=== PATIENT | female | born 1950 | race Caucasian/White ===

== ENCOUNTER 2020-12-31 15:12 | Emergency (ER) | payer MEDICARE ==
[~2020-12-31] VITALS: Ht 154.9 cm; Wt 56.0 kg
--- NOTE | 2020-12-31 16:00 | PHYS DOC ---
Past History Additional Past Medical Histor: chronic back pain Past Surgical History: Appendectomy, Cholecystectomy, Hysterectomy, Tonsillectomy, Other Additional Past Surgical Histo: breast augment, bilat bunion removals Alcohol Use: None General Adult EDM: Chief Complaint: LOWER EXT PAIN HPI: HPI: Patient is a 70-year-old female presents with right foot swelling and pain. Symptoms started on Thursday. Patient states that she is unable to bear weight due to pain. Patient's been taking tramadol for pain control. Denies fever. Review of Systems: Review of Systems: ROS At least 10 ROS systems have been reviewed and are negative except as documented in the HPI. General: Negative except as outlined in HPI above. Skin: Negative except as outlined in HPI above. HEENT: Negative except as outlined in HPI above. Neck: Negative except as outlined in HPI above. Respiratory: Negative except as outlined in HPI above.. Cardiovascular: Negative except as outlined in HPI above. Abdomen: Negative except as outlined in HPI above. : Negative except as outlined in HPI above. Back/MSK: Negative except as outlined in HPI above. Neuro: Negative except as outlined in HPI above. Psych: Negative except as outlined in HPI above. Physical Exam: PE: Constitutional: Well developed, well nourished, no acute distress, non-toxic appearance. [] HENT: Normocephalic, atraumatic, bilateral external ears normal, oropharynx moist, no oral exudates, nose normal. [] Eyes: PERRLA, EOMI, conjunctiva normal, no discharge. [] Neck: Normal range of motion, no tenderness, supple, no stridor. [] Cardiovascular:Heart rate regular rhythm, no murmur [] Lungs & Thorax: Bilateral breath sounds clear to auscultation [] Abdomen: Bowel sounds normal, soft, no tenderness, no masses, no pulsatile m asses. [] Skin: Right foot, red, warm to the touch, swelling Back: No tenderness, no CVA tenderness. [] Extremities: Right foot swelling, no cyanosis, no clubbing, ROM intact, nonpitting edema Neurologic: Alert and oriented X 3, normal motor function, normal sensory function, no focal deficits noted. [] Psychologic: Affect normal, judgement normal, mood normal. [] Current Patient Data: Vital Signs: Vital Signs Date Time Temp Pulse Resp B/P (MAP) Pulse Ox O2 Delivery O2 Flow Rate FiO2 12/31/20 15:29 98.7 16 141/96 (111) 100 Room Air EKG: EKG: [] Radiology/Procedures: Radiology/Procedures: []Exam: Right foot 3 views INDICATION: Pain/swelling TECHNIQUE: Frontal, lateral and oblique views of the right foot Comparisons: None FINDINGS: Extensive soft tissue swelling throughout the foot. Partial osteotomy changes with fixation screw at the first metatarsal head. There is mild flattening of the second metatarsal head. IMPRESSION: 1. Extensive soft tissue swelling throughout the foot. 2. Flattening at the second metatarsal head, may be sequela of chronic repetitive trauma Electronically signed by: Ramin Hdz MD (12/31/2020 4:27 PM) [facility] Heart Score: C/O Chest Pain: No Risk Factors: Risk Factors: DM, Current or recent (<one month) smoker, HTN, HLP, family history of CAD, obesity. Risk Scores: Score 0 - 3: 2.5% MACE over next 6 weeks - Discharge Home Score 4 - 6: 20.3% MACE over next 6 weeks - Admit for Clinical Observation Score 7 - 10: 72.7% MACE over next 6 weeks - Early Invasive Strategies Course & Med Decision Making: Course & Med Decision Making Pertinent Labs and Imaging studies reviewed. (See chart for details) [] 70-year-old female with right foot pain and swelling. Patient denies injury and is hemodynamically stable. Afebrile. All labs unremarkable. X-ray of right foot is unremarkable. Patient's cause of redness and swelling to the foot is most likely due to cellulitis. Patient started on antibiotics. Denies needing any medication for pain control. Advised patient to follow-up with PCP if symptoms do not improve or in the next 2 to 3 days. Discussed return precautions. Patient is hemodynamically stable upon disposition. Dragon Disclaimer: [place] Disclaimer: This electronic medical record was generated, in whole or in part, using a voice recognition dictation system. Departure Departure: Impression: Primary Impression: Cellulitis Qualified Codes: L03.818 - Cellulitis of other sites Disposition: HOME / SELF CARE / HOMELESS Condition: STABLE Referrals: GLENNA HALL (PCP) Patient Instructions: Cellulitis, [id number] Additional Instructions: You're seen emergency room for swelling to your right foot. All of your labs are unremarkable. X-ray of your right foot was negative. I'm sending you home with prescription for Keflex. If symptoms not improve in the next 2 to 3 days please follow-up with your PCP. Return to the emergency room for your primary care if symptoms worsen. Continue taking gabapentin and tramadol at home to help with your pain. EMERGENCY DEPARTMENT GENERAL DISCHARGE INSTRUCTIONS Thank you for coming to [facility] (ED) today and trusting us with you care. We trust that you had a positivie experience in our Emergency Department. If you wish to speak to the department management, you may call the director at [phone]. YOUR FOLLOW UP INSTRUCTIONS ARE FOLLOWS: 1. Do you have a private Doctor? If you do not have a private doctor, please ask for a resource list of physicians or clinics that may be able to assist you with follow up care. 2. The Emergency Physician has interpreted your x-rays. The X-Ray specialist will also review them. If there is a change in the findings, you will be notified in 48 hours when at all possible. 3. A lab test or culture has been done, your results will be reviewed and you will be notified if you need a change in treatment. ADDITIONAL INSTRUCTIONS AND INFORMATION: 1. Your care today has been supervised by a physician who is specially trained in emergency care. Many problems require more than one evaluation for a complete diagnosis and treatment. We recommend that you schedule your follow up appointment as recommended to ensure complete treatment of you illness or injury. If you are unable to obtain follow up care and continue to have a problem, or if your condition worsens, we recommend that you return to the ED. 2. We are not able to safely determine your condition over the phone nor are we able to give sound medical advice over the phone. For these safety reasons, if you call for medical advice we will ask you to come to the ED for further evaluation. 3. If you have any questions regarding these discharge instructions please call the ED at [phone]. SAFETY INFORMATION: In the interest of safety, wellness, and injury prevention; we encourage you to wear your sealbelt, if you smoke; quite smoking, and we encourage family to use a protective helmet for bicycling and other sporting events that present an increased risk for head injury. IF YOUR SYMPTOMS WORSEN OR NEW SYMPTOMS DEVELOP, OR YOU HAVE CONCERNS ABOUT YOUR CONDITION; OR IF YOUR CONDITION WORSENS WHILE YOU ARE WAITING FOR YOUR FOLLOW UP APPOINTMENT; EITHER CONTACT YOUR PRIMARY CARE DOCTOR, THE PHYSICIAN WHOSE NAME AND NUMBER YOU WERE GIVEN, OR RETURN TO THE ED IMMEDIATELY. Scripts Cephalexin (CEPHALEXIN) 500 Mg Tablet 1 TAB PO QID for cellulitis for 7 Days, #28 TAB Prov: CUONG AKHTAR APRN 12/31/20 CUONG AKHTAR APRN Dec 31, 2020 16:00
[2020-12-31 16:23] LABS: BASO # 0.1 x10^3/uL (0.0-0.2); BASO % 1 % (0-3); EOS # 0.2 x10^3/uL (0.0-0.7); EOS % 2 % (0-3); HEMATOCRIT 37.4 % (36.0-47.0); HEMOGLOBIN 12.2 g/dL (12.0-15.5); LYMPH # 1.2 x10^3/uL (1.0-4.8); LYMPH % 10 % (24-48); MEAN CORPUSCULAR HEMOGLOBIN 30 pg (25-35); MEAN CORPUSCULAR HGB CONC 33 g/dL (31-37); MEAN CORPUSCULAR VOLUME 92 fL (79-100); MONO % 9 % (0-9); NEUT # 9.1 x10^3uL (1.8-7.7); NEUT % 78 % (31-73); PLATELET COUNT 217 x10^3/uL (140-400); RED BLOOD COUNT 4.07 x10^6/uL (3.50-5.40); RED CELL DISTRIBUTION WIDTH 13.3 % (11.5-14.5); WHITE BLOOD COUNT 11.7 x10^3/uL (4.0-11.0)
--- NOTE | 2020-12-31 16:29 | RAD ---
Exam: Right foot 3 views INDICATION: Pain/swelling TECHNIQUE: Frontal, lateral and oblique views of the right foot Comparisons: None FINDINGS: Extensive soft tissue swelling throughout the foot. Partial osteotomy changes with fixation screw at the first metatarsal head. There is mild flattening of the second metatarsal head. IMPRESSION: 1. Extensive soft tissue swelling throughout the foot. 2. Flattening at the second metatarsal head, may be sequela of chronic repetitive trauma Electronically signed by: Ramin Hdz MD (12/31/2020 4:27 PM) [facility]
[2020-12-31] MEDS ORDERED: CEPH500T PO ×2 (16:52→17:04)
[2020-12-31 17:30] VITALS: BP 134/81
== END 2020-12-31 17:25 | disposition home or self-care (01) ==
LOC: ER 15:12
DX: L03.115 Cellulitis of right lower limb (principal); G89.29 Other chronic pain
CPT/HCPCS: 36415; 73630; 85025; 99284